=== PATIENT | female | born 1965 | race African-American/Black ===

== ENCOUNTER 2019-02-22 15:12 | Observation (INO) | payer OTHER ==
[2019-02-22 15:21] VITALS: BMI 37.7
--- NOTE | 2019-02-22 15:56 | PDOC ---
History of Present Illness - General Chief Complaint: Chest Pain Stated Complaint: CP Time Seen by Provider: 02/22/19 15:39 - History of Present Illness Initial Comments: 02/22/19 15:55 HPI: 53 y/o F with hx of HTN, DM, RYLAN, obesity presenting with SOB earlier today. She states after lunch around 2pm, she started feeling warm and flushed. After getting up to walk, she reports increased flushing and increasing fatigue and generalized weakness; she then started feeling midsternal chest tightness and SOB. She also reports nausea during this episode but denies emesis. She had to sit down due to her symptoms. She states the episode lasted ~30min. This is a first time occurrence. She also reports exertional dyspnea over the past year and she is not able to walk 1 block without feeling SOB; she denies LH, chest pain, or LE claudication but requires stopping to improve the SOB. She denies fever, chills, ALLEN, abd pain, diahporesis, syncope. She reports an EKG in the past and was told to follow with cardiology; she had an echo and stress test but is unclear of the results from over a year ago. PMHx: as noted above ROS: as noted SHx: Denies tobacco use; no alcohol use; no rec drugs Allergies: NKDA ROS: GENERAL/CONSTITUTIONAL: No fever or chills. +generalized weakness. HEAD, EYES, EARS, NOSE AND THROAT: No change in vision. No ear pain or discharge. No sore throat. CARDIOVASCULAR: No chest pain; +shortness of breath RESPIRATORY: No cough, wheezing, or hemoptysis. GASTROINTESTINAL: +nausea; no vomiting, diarrhea or constipation. GENITOURINARY: No dysuria, frequency, or change in urination. MUSCULOSKELETAL: No joint or muscle swelling or pain. No neck or back pain. SKIN: No rash NEUROLOGIC: No headache, loss of consciousness, or change in strength/sensation. ENDOCRINE: No increased thirst. No abnormal weight change HEMATOLOGIC/LYMPHATIC: No anemia, easy bleeding, or history of blood clots. ALLERGIC/IMMUNOLOGIC: No hives or skin allergy. PE: GENERAL: Awake, alert, and fully oriented, no acute distress HEAD: No signs of trauma, normocephalic, atraumatic EYES: EOMI, sclera anicteric, conjunctiva clear ENT: Auricles normal inspection, hearing grossly normal, nares patent, oropharynx clear without exudates. Moist mucosa NECK: Normal ROM, no lymphadenopathy LUNGS: No increased work of breathing, symmetrical chest rise, clear to auscultation bilaterally, no wheezes, crackles or rhonchi HEART: Regular rate and rhythm, normal S1 and S2, no murmurs, peripheral pulses 2+ and equal bilaterally. ABDOMEN: Soft, nondistended, nontender, normoactive bowel sounds. No guarding, no rebound. No masses. No CVAT MUSCULOSKELETAL: Normal inspection, FROM NEUROLOGICAL: Cranial nerves II through XII grossly intact. Normal speech, normal gait, no focal sensorimotor deficits SKIN: Warm, Dry, normal turgor, no rashes or lesions noted Past History - Past Medical History Allergies/Adverse Reactions: Allergies Allergy/AdvReac Type Severity Reaction Status Date / Time No Known Allergies Allergy Verified 02/22/19 15:19 COPD: No Diabetes: Yes HTN: Yes Hypercholesterolemia: Yes Other medical history: ARTHRITIS - Psycho Social/Smoking Cessation Hx Smoking History: Never smoked Have you smoked in the past 12 months: No Information on smoking cessation initiated: No Hx Alcohol Use: No Drug/Substance Use Hx: No *Physical Exam - Vital Signs Last Vital Signs Temp Pulse Resp BP Pulse Ox 98.3 F 78 18 123/74 99 02/22/19 15:19 02/22/19 15:19 02/22/19 15:19 02/22/19 15:19 02/22/19 15:19 Heart Score/ECG Review - History History: Moderately suspicious - Electrocardiogram EKG: Normal - Age Age: 45-65 - Risk Factors Risk Factors Heart Score: Yes Hx Hypertension, Yes Hx Diabetes, Yes Hx Obesity Based on the list above the patient has:: >/=3 risk factors or Hx atherosclerotic disease - Troponin Troponin: </= normal limit - Score Heart Score - Total: 4 ED Treatment Course - LABORATORY CBC & Chemistry Diagram: 02/22/19 16:30 02/22/19 16:30 Medical Decision Making - Medical Decision Making 02/22/19 18:28 53 y/o F with hx of HTN, DM, RYLAN, obesity presenting with SOB earlier today associated with nonspecific dizziness, chest tightness, nausea. She also reports exertional dyspnea x1 year. VSS, AF. PE unremarkable. DDx includes ACS, vasovagal episode, orthostasis, arrhythmia, lyte imbalance -cbc, cmp, cardiac prof, mg, ekg, cxr 02/22/19 18:39 labs wnl ekg with 1st degree AV block cxr with no acute process 02/22/19 18:43 Given hx and risk factors, concerning story as well as HEART score 4, will admit for obs; pending MBMD 02/22/19 19:56 admit tele obs under Dr Celaya Discharge - Discharge Information Problems reviewed: Yes Clinical Impression/Diagnosis: Chest tightness, Shortness of breath Condition: Fair - Admission Yes - Follow up/Referral Referrals: Carol Castillo MD [Primary Care Provider] - - Patient Discharge Instructions - Post Discharge Activity
[2019-02-22 16:46] LABS: BASO % 1.2 % (0-2.0); EOS % 1.8 % (0-4.5); HEMATOCRIT 37.9 % (32.4-45.2); HEMOGLOBIN 12.2 GM/dL (10.7-15.3); LYMPH % 34.1 % (8-40); MCH 25.8 pg (25.7-33.7); MCHC 32.1 g/dl (32.0-36.0); MEAN CELL VOLUME 80.3 fl (80-96); MEAN PLT VOLUME 9.4 fl (7.5-11.1); MONO % 7.1 % (3.8-10.2); NEUT % 55.8 % (42.8-82.8); PLATELET COUNT 264 K/MM3 (134-434); RBC 4.72 M/mm3 (3.60-5.2); RDW 14.4 % (11.6-15.6); WHITE BLOOD COUNT 7.2 K/mm3 (4.0-10.0)
[2019-02-22 17:08] LABS: MAGNESIUM 1.7 mg/dL (1.8-2.4)
[2019-02-22 17:15] LABS: ALBUMIN 3.9 g/dl (3.4-5.0); BILIRUBIN,TOTAL 0.5 mg/dL (0.2-1); BLOOD UREA NITROGEN 19.1 mg/dL (7-18); CALCIUM 9.3 mg/dL (8.5-10.1); CREATININE 1.3 mg/dL (0.55-1.3); POTASSIUM 3.5 mmol/L (3.5-5.1); TOT PROT 7.8 g/dl (6.4-8.2)
[2019-02-22 17:18] LABS: INR 1.07 (0.83-1.09); PROTHROMBIN TIME (PATIENT) 12.6 SEC (9.7-13.0)
[2019-02-22 17:21] LABS: ACTIVATED PTT 39.7 SECONDS (25.2-36.5)
--- NOTE | 2019-02-22 17:49 | PDOC ---
Documentation entered by Sonja Rios SCRIBE, acting as scribe for Connie Anderson MD. Connie Anderson MD: This documentation has been prepared by the Gabriel degroot Nirvannie, SCRIBE, under my direction and personally reviewed by me in its entirety. I confirm that the documentation accurately reflects all work, treatment, procedures, and medical decision making performed by me. Attending Attestation - Resident Resident Name: RyanLuzdarrion - ED Attending Attestation I have performed the following: I have examined & evaluated the patient, The case was reviewed & discussed with the resident, I agree w/resident's findings & plan, Exceptions are as noted - HPI HPI: 02/22/19 17:30 Ms Dockery is a 53 yo F who present to the ER with an episode of dizziness, chest pain. Patient states she was in her usual state of health, arrived to work at approximately 12 noon. She was going to check in at 1:56 PM when she noted a sense of profound weakness. She entered the elevator and had to hold herself up against the wall of the elevator. When she exited the elevator she put her head down to rest due to weakness Patient then noted she felt very hot. She at some point removed her blouse due to feeling an overwhelming sense of heat. Coworker sat her down and were able to do a fingerstick-130. We attempted to do a blood pressure, but her arm was too big for the blood pressure cuff. Patient states that this point she developed chest tightness/pressure. No radiation to the arm or back. Patient has had 2 symptoms like this in the past. Pt had 45 minutes of symptoms from the moment it began to the beginning of its resolution, patient's reports 02/22/19 17:47 02/22/19 18:26 - Physicial Exam PE: 02/22/19 17:47 GENERAL: The patient is in no acute distress. ENT: Ears normal, nares patent, oropharynx clear without exudates. Moist mucous membranes. NECK: Normal range of motion, supple LUNGS: Breath sounds equal, clear to auscultation bilaterally. No wheezes, and no crackles. HEART:Regular rate and rhythm, normal S1 and S2 without murmur, rub or gallop. ABDOMEN: Soft, nontender, normoactive bowel sounds. EXTREMITIES: Normal range of motion, no edema. NEUROLOGICAL: Cranial nerves II through XII grossly intact. Normal speech. No focal neurological deficits. SKIN: Warm, Dry, normal turgor, no rashes or lesions noted. - Medical Decision Making 02/22/19 17:47 53-year-old female presenting to the emergency department with a complaint of dyspnea on exertion, and impending sense of doom Differential includes cardiac ischemia, pe, asthma exacerbation, pneumonia, pneumothorax, pleural effusion, costochondritis, pericarditis, GERD. We will do: Lab EKG Chest x-ray Admit EKG: My normal sinus rhythm, rate of 75 bpm, axis is normal, intervals are abnormal- [place]: 220ms, QRS 108ms, QTC 466. No ST elevation or depression, T waves are upright 02/22/19 17:48 Laboratory Tests 02/22/19 02/22/19 16:30 16:30 BUN 19.1 H Creatinine 1.3 Creatine Kinase 91 Troponin I < 0.02 02/22/19 18:47 Will plan to admit
[2019-02-22] MEDS ORDERED: ASPIRIN 81 MG CHEWABLE TABLETS PO ONE (18:33)
--- NOTE | 2019-02-22 19:12 | PN ---
Teaching Attending Note Name of Resident: Amrita Serrano ATTENDING PHYSICIAN STATEMENT I saw and evaluated the patient. I reviewed the resident's note and discussed the case with the resident. I agree with the resident's findings and plan as documented. SUBJECTIVE: Patient is a 53 year old woman with a PMH of HTN, NIDDM, Arthritis, Obstructive sleep apnea and Obesity presenting with SOB that started earlier today. She states after lunch around 2 pm, she started feeling warm and flushed. After getting up to walk, she reports increased flushing and increasing fatigue and generalized weakness - then started feeling midsternal chest tightness and SOB. She also reports nausea during this episode but denies vomiting. She had to sit down due to her symptoms. She states the episode lasted about 30 minutes. This is a first time occurrence. She also reports exertional dyspnea over the past year and she is not able to walk 1 block without feeling SOB. Denies lightheadedness or LE claudication, fever, chills, headache, abdominal pain, diaphoresis or dysuria. She reports an EKG in the past and was told to follow with cardiology. She had an echo and stress test over 1 year ago, but is unclear of the results. Denies tobacco, alcohol or illicit drug use. Takes Naproxen for arthritis. Has FH of breast cancer and CVA. OBJECTIVE: Alert Vital Signs Period Temp Pulse Resp BP Sys/Bhat Pulse Ox Last 24 Hr 98.3 F 78 18 123/74 99 HEENT: No Jaundice, eye redness or discharge, PERRLA, EOMI. Normocephalic, atraumatic. External ears are normal and hearing is grossly intact. No nasal discharge. Neck: Supple, nontender. No palpable adenopathy or thyromegaly. No JVD Chest: Good effort. Clear to auscultation and percussion. Heart: Regular. No S3, rub or murmur Abdomen: Not distended, soft, nontender and no HSM. No rebound or guarding. Normal bowel sounds. Ext: Peripheral pulses intact. No leg edema. Skin: Warm and dry. No petechiae, rash or ecchymosis. Neuro: Alert. Oriented x3. CN 2-12 grossly intact. Sensation grossly intact in all four extremities and DTR are symmetric. Psych: Appropriate mood and affect. Good insight. Abnormal Lab Results 1202/22/19 02/22/19 16:30 16:30 16:30 PTT (Actin FS) 39.7 H Anion Gap 6 L BUN 19.1 H Magnesium 1.7 L AST 13 L ASSESSMENT AND PLAN: 1. Chest pain - Now pain free. Got Aspirin 162 mg PO in the ER. Has risk factors for ACS. EKG shows NSR with Io AV block, prolonged QTc, but no significant ST-T wave changes and initial troponin is negative. No acute abnormality on CXR. Will admit to telemetry to rule out ACS, get ECHO, TSH, urinalysis, fasting lipids and consult cardiology. Correct hypomagnesemia with IV MgSO4. Counseled to stop Naproxen or other NSAIDS and use topical agents, warm soaks and/or tylenol for arthritis pain. Will continue comprehensive care for all of patients comorbid conditions. 2. DM For now, we will hold the home diabetes drugs and implement sliding scale insulin regimen. Provide comprehensive diabetes care with patient teaching and counseling about the importance of adherence to prescribed diabetes regimen, euglycemia, eye care and foot care. 3. Obesity Counseled on the risks associated with obesity. Will provide patient all the necessary assistance, counseling and positive reinforcement to facilitate weight loss. Consult stemhole borer. 4. Hypertension - Restart suitable outpatient antihypertensive drugs when clinically appropriate. Revise regimen to ensure [id number] excellent BP control and mental health counselor patient on the injurious effects of uncontrolled hypertension. Nonpharmacologic measures to control hypertension like weight loss , salt restriction and exercise discussed. Importance of adherence to treatment regimen and attainment of normotension emphasized. 5. DVT prophylaxis - Lovenox 40 mg SQ q 24 hours. 6. Advance directives - Full code
[2019-02-22] MEDS ORDERED: ASPIRIN COATED 81 MG TABLET.EC ONE (19:22)
--- NOTE | 2019-02-22 20:14 | HP ---
CHIEF COMPLAINT: chest tightness , SOB PCP: Dr. Francisco HISTORY OF PRESENT ILLNESS: 53 yo F PMH HTN, DM, RYLAN BIBEMS to ED with shortness of breath and chest tightness. Pt states she was at work ( approx 2pm) and suddenly began to feel tired and short of breath. she sat down and became dizzy, vision became dark, mid sternal chest tightness and worsening shortness of breath. she states that they took her glucose and it was 166. after they gave her oxygen, she began feeling better. she states that the chest tightness resolved in the ambulance. she states she has not had a similar incidence in the past. she states that she is compliant with her medications. her hypertension has been uncontrolled for years, although since she joined a program for bariatric weight loss her BP as been improved. she states that for a year she notices worsening orthopnea and dyspnea on exertion. she was recommended to see a mobile heavy equipment operator but hasnt yet. ER course was notable for: (1) EKG reviewed, NSR no ST changes (2)trop neg Recent Travel:denies PAST MEDICAL HISTORY: HTN, DM, RYLAN PAST SURGICAL HISTORY: denies Social History: Smoking:denies Alcohol:denies Drugs: denies Allergies No Known Allergies Allergy (Verified 02/22/19 15:19) HOME MEDICATIONS: will have to obtain med rec metformin 500 HCTZ 25 Lisinopril labetalol amlodipine REVIEW OF SYSTEMS CONSTITUTIONAL: Absent: fever, chills, diaphoresis, generalized weakness, malaise, loss of appetite, weight change HEENT: Absent: rhinorrhea, nasal congestion, throat pain, throat swelling, difficulty swallowing, mouth swelling, ear pain, eye pain, visual changes CARDIOVASCULAR: PresentL chest tightness, lightheaded Absent: chest pain, syncope, palpitations, irregular heart rate, peripheral edema RESPIRATORY: Present: shortness of breath, dyspnea with exertion, orthopnea Absent: cough, wheezing, stridor, hemoptysis GASTROINTESTINAL: Absent: abdominal pain, abdominal distension, nausea, vomiting, diarrhea, constipation, melena, hematochezia GENITOURINARY: Absent: dysuria, frequency, urgency, hesitancy, hematuria, flank pain, genital pain MUSCULOSKELETAL: Absent: myalgia, arthralgia, joint swelling, back pain, neck pain SKIN: Absent: rash, itching, pallor HEMATOLOGIC/IMMUNOLOGIC: Absent: easy bleeding, easy bruising, lymphadenopathy, frequent infections ENDOCRINE: Absent: unexplained weight gain, unexplained weight loss, heat intolerance, cold intolerance NEUROLOGIC: Absent: headache, focal weakness or paresthesias, dizziness, unsteady gait, seizure, mental status changes, bladder or bowel incontinence PSYCHIATRIC: Absent: anxiety, depression, suicidal or homicidal ideation, hallucinations. PHYSICAL EXAMINATION Vital Signs - 24 hr 02/22/19 15:19 Temperature 98.3 F Pulse Rate 78 Respiratory 18 Rate Blood Pressure 123/74 O2 Sat by Pulse 99 Oximetry (%) GENERAL: Awake, alert, and fully oriented, in no acute distress. HEAD: Normal with no signs of trauma. EYES: Pupils equal, round and reactive to light, extraocular movements intact, sclera anicteric, conjunctiva clear. No lid lag. EARS, NOSE, THROAT: Ears normal, nares patent, oropharynx clear without exudates. Moist mucous membranes. + hepatojugular NECK: Normal range of motion, supple without lymphadenopathy, JVD, or masses. LUNGS: Breath sounds equal, clear to auscultation bilaterally. No wheezes, and no crackles. No accessory muscle use. HEART: Regular rate and rhythm, normal S1 and S2 without murmur, rub or gallop. ABDOMEN: Soft, nontender, not distended, normoactive bowel sounds, no guarding, no rebound, no masses. No hepatomegaly or splenomegaly. MUSCULOSKELETAL: Normal range of motion at all joints. No bony deformities or tenderness. No CVA tenderness. UPPER EXTREMITIES: 2+ pulses, warm, well-perfused. No cyanosis. No clubbing. No peripheral edema. LOWER EXTREMITIES: 2+ pulses, warm, well-perfused. No calf tenderness. No peripheral edema. NEUROLOGICAL: Cranial nerves II-XII intact. Normal speech. Normal gait. PSYCHIATRIC: Cooperative. Good eye contact. Appropriate mood and affect. SKIN: Warm, dry, normal turgor, no rashes or lesions noted, normal capillary refill. Laboratory Last Values WBC 7.2 K/mm3 (4.0-10.0) 02/22/19 16:30 RBC 4.72 M/mm3 (3.60-5.2) 02/22/19 16:30 Hgb 12.2 GM/dL (10.7-15.3) 02/22/19 16:30 Hct 37.9 % (32.4-45.2) 02/22/19 16:30 MCV 80.3 fl (80-96) 02/22/19 16:30 MCH 25.8 pg (25.7-33.7) 02/22/19 16:30 MCHC 32.1 g/dl (32.0-36.0) 02/22/19 16:30 RDW 14.4 % (11.6-15.6) 02/22/19 16:30 Plt Count 264 K/MM3 (134-434) 02/22/19 16:30 MPV 9.4 fl (7.5-11.1) 02/22/19 16:30 Absolute Neuts (auto) 4.0 K/mm3 (1.5-8.0) 02/22/19 16:30 Neutrophils % 55.8 % (42.8-82.8) 02/22/19 16:30 Lymphocytes % 34.1 % (8-40) 02/22/19 16:30 Monocytes % 7.1 % (3.8-10.2) 02/22/19 16:30 Eosinophils % 1.8 % (0-4.5) 02/22/19 16:30 Basophils % 1.2 % (0-2.0) 02/22/19 16:30 Nucleated RBC % 0 % (0-0) 02/22/19 16:30 PT with INR 12.60 SEC (9.7-13.0) 02/22/19 16:30 INR 1.07 (0.83-1.09) 02/22/19 16:30 PTT (Actin FS) 39.7 SECONDS (25.2-36.5) H 02/22/19 16:30 Sodium 139 mmol/L (136-145) 02/22/19 16:30 Potassium 3.5 mmol/L (3.5-5.1) 02/22/19 16:30 Chloride 100 mmol/L (98-107) 02/22/19 16:30 Carbon Dioxide 32 mmol/L (21-32) 02/22/19 16:30 Anion Gap 6 MMOL/L (8-16) L 02/22/19 16:30 BUN 19.1 mg/dL (7-18) H 02/22/19 16:30 Creatinine 1.3 mg/dL (0.55-1.3) 02/22/19 16:30 Est GFR (CKD-EPI)AfAm 54.24 02/22/19 16:30 Est GFR (CKD-EPI)NonAf 46.80 02/22/19 16:30 POC Glucometer 91 UNITS (80-120) 02/22/19 22:53 Random Glucose 98 mg/dL (74-106) 02/22/19 16:30 Calcium 9.3 mg/dL (8.5-10.1) 02/22/19 16:30 Magnesium 1.7 mg/dL (1.8-2.4) L 02/22/19 16:30 Total Bilirubin 0.5 mg/dL (0.2-1) 02/22/19 16:30 AST 13 U/L (15-37) L 02/22/19 16:30 ALT 32 U/L (13-61) 02/22/19 16:30 Alkaline Phosphatase 70 U/L (45-117) 02/22/19 16:30 Creatine Kinase 91 U/L (26-192) 02/22/19 16:30 Troponin I < 0.02 ng/ml (0.00-0.05) 02/22/19 16:30 B-Natriuretic Peptide 20.2 pg/ml (5-125) 02/22/19 16:30 Total Protein 7.8 g/dl (6.4-8.2) 02/22/19 16:30 Albumin 3.9 g/dl (3.4-5.0) 02/22/19 16:30 TSH 1.48 uIU/ml (0.358-3.74) 02/22/19 16:30 ASSESSMENT/PLAN: 53 yo F PMH HTN, DM, RYLAN BIBEMS to ED with shortness of breath and chest tightness.admitted to tele obs for r/o ACS Chest pain R/O ACS - s/p Asa pt reports improvement of sxs - EKG reviewed, NSR no ST changes - trop neg x 2 - BNP 20 - pending Echo - fasting lipids - cardiology recs appreciated - TSH 1.48 DM - hold metformin -ISS - BGM ACHS -pending A1C HTN - pt recalls she is on 25 HCTZ, will try to obtain medical reconciliation. continue on 12.5 HCTZ - continue lisinopril, labetalol, amlodipine once med rec obtained - continue to monitor BP MAE vs CKD -unable to obtain baseline but likely chronic - avoid nephrotoxic agents Arthritis - avoid nephrotoxic agents - pt can use Tylenol , bengay for pain F/E/N -1 mg MgSO4 given to replete Mg - monitor lytes - NPO Dispo: tele obs Visit type - Emergency Visit Emergency Visit: Yes ED Registration Date: 02/22/19 Care time: The patient presented to the Emergency Department on the above date and was hospitalized for further evaluation of their emergent condition. - New Patient This patient is new to me today: Yes Date on this admission: 02/23/19 - Critical Care Critical Care patient: No ATTENDING PHYSICIAN STATEMENT I saw and evaluated the patient. I reviewed the resident's note and discussed the case with the resident. I agree with the resident's findings and plan as documented. SUBJECTIVE: OBJECTIVE: ASSESSMENT AND PLAN:
[2019-02-22] MEDS ORDERED: ACETAMINOPHEN 325 MG TABLET (FP) PO PRN (20:43)
[2019-02-22 22:23] LABS: N-TERMINAL BNP 20.2 pg/ml (5-125)
[2019-02-22] MEDS ORDERED: MAGNESIUM SULF 50% (8.12 MEQ/2 ML-1 GM VIAL) IVPB ONE (22:56)
[2019-02-22] MEDS: INSULIN SLIDING SCALE (NOVOLOG) 1 VIAL SQ SCH (23:02)
[2019-02-23] MEDS ORDERED: HEPARIN NA (PORCINE) 5,000 UNITS/ML 1ML VIAL ONE (00:15)
[2019-02-23] MEDS ORDERED: MAGNESIUM 1GM/D5W - 1 GM/100 ML IVPB IVPB ONE (00:15)
[2019-02-23] MEDS ORDERED: HEPARIN NA (PORCINE) 5,000 UNITS/ML 1ML VIAL SQ SCH (02:00)
[2019-02-23 03:27] LABS: URINE APPEARANCE CLEAR; URINE BILIRUBIN NEGATIVE (NEGATIVE); URINE COLOR YELLOW; URINE GLUCOSE (UA) NEGATIVE (NEGATIVE); URINE KETONE NEGATIVE (NEGATIVE); URINE LEUK ESTERASE NEGATIVE (NEGATIVE); URINE NITRITE NEGATIVE (NEGATIVE); URINE PROTEIN NEGATIVE (NEGATIVE); URINE UROBILINOGEN 0.2 mg/dL (0.2-1.0)
[2019-02-23 06:44] LABS: HEMATOCRIT 35.7 % (32.4-45.2); HEMOGLOBIN 11.8 GM/dL (10.7-15.3); MCH 26.1 pg (25.7-33.7); MCHC 33.1 g/dl (32.0-36.0); MEAN CELL VOLUME 79.1 fl (80-96); MEAN PLT VOLUME 9.3 fl (7.5-11.1); PLATELET COUNT 249 K/MM3 (134-434); RBC 4.52 M/mm3 (3.60-5.2); RDW 14.4 % (11.6-15.6); WHITE BLOOD COUNT 6.7 K/mm3 (4.0-10.0)
[2019-02-23 07:08] LABS: ALBUMIN 3.7 g/dl (3.4-5.0); BILIRUBIN,TOTAL 0.6 mg/dL (0.2-1); CALCIUM 9.7 mg/dL (8.5-10.1); CREATININE 1.1 mg/dL (0.55-1.3); MAGNESIUM 2.1 mg/dL (1.8-2.4); PHOSPHOROUS 3.9 mg/dL (2.5-4.9); TOT PROT 7.7 g/dl (6.4-8.2)
[2019-02-23] MEDS: INSULIN SLIDING SCALE (NOVOLOG) 1 VIAL SQ SCH ×3 (07:14→15:40)
[2019-02-23] MEDS: HEPARIN NA (PORCINE) 5,000 UNITS/ML 1ML VIAL SQ SCH ×2 (08:07→14:14)
--- NOTE | 2019-02-23 11:57 | EKG ---
Test Reason : Blood Pressure : / mmHG Vent. Rate : 075 BPM Atrial Rate : 075 BPM P-R Int : 220 ms QRS Dur : 108 ms QT Int : 418 ms P-R-T Axes : 067 010 041 degrees QTc Int : 466 ms SINUS RHYTHM WITH 1ST DEGREE A-V BLOCK NONSPECIFIC T WAVE ABNORMALITY PROLONGED QT ABNORMAL ECG NO PREVIOUS ECGS AVAILABLE Confirmed by NICKOLAS AVILA, YANIRA ([id number]) on 02/23/2019 11:57:40 AM Referred By: Confirmed By:YANIRA OLMOS MD
[2019-02-23] MEDS ORDERED: POTASSIUM CHLORIDE TABS 20 MEQ TABLET.ER (FP) PO SCH (14:41)
--- NOTE | 2019-02-23 15:33 | ECHO ---
Name: SHABBIR FRASER Eugenio Exam:Adult Echocardiogram Study Date: 02/23/2019 02:28 PM Age: 53 yrs Height: 68 in Weight: 248 lb BSA: 2.2 m2 MMode/2D Measurements & Calculations IVSd: 1.1 cm Ao root diam: 2.8 cm LVIDd: 4.0 cm LA dimension: 2.7 cm LVIDs: 2.5 cm ACS: 1.9 cm LVPWd: 1.4 cm EDV(Teich): 69.4 ml LVOT diam: 2.0 cm ESV(Teich): 22.2 ml RV S Francois: 16.2 cm/sec Doppler Measurements & Calculations MV E max francois: 73.5 cm/sec Ao V2 max: 152.0 cm/sec MV A max francois: 98.2 cm/sec Ao max P.2 mmHg MV E/A: 0.75 Ao V2 mean: 109.4 cm/sec MV dec time: 0.31 sec Ao mean P.3 mmHg Ao V2 VTI: 28.5 cm LOI(I,D): 2.8 cm2 LOI(V,D): 2.6 cm2 LV V1 max P.6 mmHg SV(LVOT): 79.3 ml LV V1 mean P.3 mmHg LV V1 max: 128.3 cm/sec LV V1 mean: 83.7 cm/sec LV V1 VTI: 26.2 cm TR max francois: 225.4 cm/sec PA V2 max: 71.6 cm/sec TR max P.3 mmHg PA max P.0 mmHg Med Peak E' Francois: 11.8 cm/sec Med E/e': 6.2 Lat Peak E' Francois: 15.2 cm/sec Lat E/e': 4.8 Procedure A complete two-dimensional transthoracic echocardiogram was performed (2D, M-mode, Doppler and color flow Doppler). Left Ventricle The left ventricular size, thickness and function are normal. The left ventricular ejection fraction is normal. Ejection Fraction = 60-65%. The left ventricular wall motion is normal. Right Ventricle The right ventricle is normal in size and function. Atria Normal left and right atrial size and function. Mitral Valve There is no mitral regurgitation noted. Tricuspid Valve There is trace tricuspid regurgitation. Right ventricular systolic pressure is normal. Aortic Valve No hemodynamically significant valvular aortic stenosis. No aortic regurgitation is present. Pulmonic Valve There is no pulmonic valvular regurgitation. Great Vessels The aortic root is normal size. Pericardium/Pleura There is no pericardial effusion. Interpretation Summary The left ventricular size, thickness and function are normal The right ventricle is normal in size and function. There is trace tricuspid regurgitation. MD Ozzy Roy 02/23/2019 03:32 PM
[2019-02-23] MEDS ORDERED: POTASSIUM CHLORIDE TABS 20 MEQ TABLET.ER (FP) PO ONE ×2 (15:50→16:14)
--- NOTE | 2019-02-23 16:23 | PN ---
Teaching Attending Note Name of Resident: Mikie Moeller ATTENDING PHYSICIAN STATEMENT I saw and evaluated the patient. I reviewed the resident's note and discussed the case with the resident. I agree with the resident's findings and plan as documented. SUBJECTIVE: Patient is a 53 yoF with PMHx of HTN, DM, RYLAN presented to ED with shortness of breath and chest tightness. She denies having any further chest pain or palpitations. OBJECTIVE: Vital Signs Temperature 97.8 F 02/23/19 15:28 Pulse Rate 80 02/23/19 15:28 Respiratory Rate 16 02/23/19 15:28 Blood Pressure 135/72 02/23/19 15:28 O2 Sat by Pulse Oximetry (%) 99 02/23/19 15:29 GENERAL: The patient is awake, alert, and fully oriented, in no acute distress. HEAD: Normal with no signs of trauma. EYES: PERRL, extraocular movements intact, sclera anicteric, conjunctiva clear. ENT: Ears normal, oropharynx clear without exudates, moist mucous membranes. NECK: Trachea midline, full range of motion, supple. LUNGS: Breath sounds equal, clear to auscultation bilaterally, no wheezes, no crackles, no accessory muscle use. HEART: Regular rate and rhythm, S1, S2 without murmur, rub or gallop. ABDOMEN: Soft, nontender, nondistended, normoactive bowel sounds, no guarding, no rebound, no hepatosplenomegaly, no masses. EXTREMITIES: 2+ pulses, warm, well-perfused, no edema. NEUROLOGICAL: Cranial nerves II through XII grossly intact. Normal speech, gait not observed. PSYCH: Normal mood, normal affect. SKIN: Warm, dry, normal turgor, no rashes or lesions noted CBCD WBC 6.7 K/mm3 (4.0-10.0) 02/23/19 05:30 RBC 4.52 M/mm3 (3.60-5.2) 02/23/19 05:30 Hgb 11.8 GM/dL (10.7-15.3) 02/23/19 05:30 Hct 35.7 % (32.4-45.2) 02/23/19 05:30 MCV 79.1 fl (80-96) L 02/23/19 05:30 MCHC 33.1 g/dl (32.0-36.0) 02/23/19 05:30 RDW 14.4 % (11.6-15.6) 02/23/19 05:30 Plt Count 249 K/MM3 (134-434) 02/23/19 05:30 MPV 9.3 fl (7.5-11.1) 02/23/19 05:30 CMP Sodium 141 mmol/L (136-145) 02/23/19 05:30 Potassium 3.0 mmol/L (3.5-5.1) L 02/23/19 05:30 Chloride 100 mmol/L (98-107) 02/23/19 05:30 Carbon Dioxide 30 mmol/L (21-32) 02/23/19 05:30 Anion Gap 10 MMOL/L (8-16) 02/23/19 05:30 BUN 19.0 mg/dL (7-18) H 02/23/19 05:30 Creatinine 1.1 mg/dL (0.55-1.3) 02/23/19 05:30 Random Glucose 115 mg/dL (74-106) H 02/23/19 05:30 Calcium 9.7 mg/dL (8.5-10.1) 02/23/19 05:30 Total Bilirubin 0.6 mg/dL (0.2-1) 02/23/19 05:30 AST 10 U/L (15-37) L 02/23/19 05:30 ALT 26 U/L (13-61) 02/23/19 05:30 Alkaline Phosphatase 69 U/L (45-117) 02/23/19 05:30 Total Protein 7.7 g/dl (6.4-8.2) 02/23/19 05:30 Albumin 3.7 g/dl (3.4-5.0) 02/23/19 05:30 CARDIAC ENZYMES Creatine Kinase 91 U/L (26-192) 02/22/19 16:30 Troponin I < 0.02 ng/ml (0.00-0.05) 02/23/19 00:30 Current Medications Generic Name Dose Route Start Last Admin Trade Name Freq PRN Reason Stop Dose Admin Acetaminophen 650 mg 02/22/19 20:43 Tylenol - PO Q6H PRN PAIN LEVEL 6-10 Heparin Sodium (Porcine) 5,000 unit 02/23/19 08:00 02/23/19 14:14 Heparin - SQ Not Given TID [facility]–1983 Insulin Aspart 0 vial 02/22/19 22:00 02/23/19 15:40 Novolog Vial Sliding Scale - SQ Not Given ACHS [facility], [facility]–1983 Protocol Potassium Chloride 20 meq 02/23/19 14:41 02/23/19 15:40 K-Dur - PO 02/23/19 22:01 20 meq BID [facility]–1983 Administration Home Medications Medication Instructions Recorded Amlodipine Besylate 10 mg PO DAILY 02/23/19 Aspirin [ASA -] 81 mg PO DAILY 02/23/19 Cholecalciferol (Vitamin D3) 5,000 unit PO DAILY 02/23/19 [Vitamin D3] Hydrochlorothiazide 25 mg PO DAILY 02/23/19 Lisinopril [Zestril] 40 mg PO DAILY 02/23/19 metFORMIN HCL [Metformin HCl ER] 500 mg PO DAILY 02/23/19 ASSESSMENT AND PLAN: Patient is a 53 yo F with PMHx HTN, DM, RYLAN presented to ED with shortness of breath and chest tightness. # Acute chest pain R/O ACS , trops are negative, echo is negative, follow with customer success representative as an outpatient for further stress test. follow up with TSH 1.48 NL, echo is normal #DM continue home metformin # HTN continue home meds # MAE vs CKD back to NL. #Arthritis continue home meds follow with primary care doctor and follow up with as an outpatient for a stress test.
--- NOTE | 2019-02-23 16:30 | DS ---
Physical Exam: SUBJECTIVE: Patient seen and examined OBJECTIVE: Vital Signs Period Temp Pulse Resp BP Sys/Bhat Pulse Ox Last 24 Hr 97.8 F-98.6 F 74-80 16-18 126-138/72-81 99-100 PHYSICAL EXAM GENERAL: Awake, alert, and fully oriented, in no acute distress. HEAD: Normal with no signs of trauma. EYES: Pupils equal, round and reactive to light, extraocular movements intact, sclera anicteric, conjunctiva clear. No lid lag. EARS, NOSE, THROAT: Ears normal, nares patent, oropharynx clear without exudates. Moist mucous membranes. + hepatojugular NECK: Normal range of motion, supple without lymphadenopathy, JVD, or masses. LUNGS: Breath sounds equal, clear to auscultation bilaterally. No wheezes, and no crackles. No accessory muscle use. HEART: Regular rate and rhythm, normal S1 and S2 without murmur, rub or gallop. ABDOMEN: Soft, nontender, not distended, normoactive bowel sounds, no guarding, no rebound, no masses. No hepatomegaly or splenomegaly. MUSCULOSKELETAL: Normal range of motion at all joints. No bony deformities or tenderness. No CVA tenderness. UPPER EXTREMITIES: 2+ pulses, warm, well-perfused. No cyanosis. No clubbing. No peripheral edema. LOWER EXTREMITIES: 2+ pulses, warm, well-perfused. No calf tenderness. No peripheral edema. NEUROLOGICAL: Cranial nerves II-XII intact. Normal speech. Normal gait. PSYCHIATRIC: Cooperative. Good eye contact. Appropriate mood and affect. SKIN: Warm, dry, normal turgor, no rashes or lesions noted, normal capillary refill. LABS Laboratory Results - last 24 hr 02/22/19 02/22/19 02/22/19 16:30 16:30 16:30 WBC 7.2 RBC 4.72 Hgb 12.2 Hct 37.9 MCV 80.3 MCH 25.8 MCHC 32.1 RDW 14.4 Plt Count 264 MPV 9.4 Absolute Neuts (auto) 4.0 Neutrophils % 55.8 Lymphocytes % 34.1 Monocytes % 7.1 Eosinophils % 1.8 Basophils % 1.2 Nucleated RBC % 0 PT with INR 12.60 INR 1.07 PTT (Actin FS) 39.7 H Sodium Potassium Chloride Carbon Dioxide Anion Gap BUN Creatinine Est GFR (CKD-EPI)AfAm Est GFR (CKD-EPI)NonAf POC Glucometer Random Glucose Calcium Phosphorus Magnesium Total Bilirubin AST ALT Alkaline Phosphatase Creatine Kinase 91 Troponin I < 0.02 B-Natriuretic Peptide Total Protein Albumin TSH Urine Color Urine Appearance Urine pH Ur Specific [place] Urine Protein Urine Glucose (UA) Urine Ketones Urine Blood Urine Nitrite Urine Bilirubin Urine Urobilinogen Ur Leukocyte Esterase 02/22/19 02/22/19 02/22/19 16:30 16:30 22:53 WBC RBC Hgb Hct MCV MCH MCHC RDW Plt Count MPV Absolute Neuts (auto) Neutrophils % Lymphocytes % Monocytes % Eosinophils % Basophils % Nucleated RBC % PT with INR INR PTT (Actin FS) Sodium 139 Potassium 3.5 Chloride 100 Carbon Dioxide 32 Anion Gap 6 L BUN 19.1 H Creatinine 1.3 Est GFR (CKD-EPI)AfAm 54.24 Est GFR (CKD-EPI)NonAf 46.80 POC Glucometer 91 Random Glucose 98 Calcium 9.3 Phosphorus Magnesium 1.7 L Total Bilirubin 0.5 AST 13 L ALT 32 Alkaline Phosphatase 70 Creatine Kinase Troponin I B-Natriuretic Peptide 20.2 Total Protein 7.8 Albumin 3.9 TSH 1.48 Urine Color Urine Appearance Urine pH Ur Specific [place] Urine Protein Urine Glucose (UA) Urine Ketones Urine Blood Urine Nitrite Urine Bilirubin Urine Urobilinogen Ur Leukocyte Esterase 02/23/19 02/23/19 02/23/19 00:30 03:15 05:30 WBC 6.7 RBC 4.52 Hgb 11.8 Hct 35.7 MCV 79.1 L MCH 26.1 MCHC 33.1 RDW 14.4 Plt Count 249 MPV 9.3 Absolute Neuts (auto) Neutrophils % Lymphocytes % Monocytes % Eosinophils % Basophils % Nucleated RBC % PT with INR INR PTT (Actin FS) Sodium Potassium Chloride Carbon Dioxide Anion Gap BUN Creatinine Est GFR (CKD-EPI)AfAm Est GFR (CKD-EPI)NonAf POC Glucometer Random Glucose Calcium Phosphorus Magnesium Total Bilirubin AST ALT Alkaline Phosphatase Creatine Kinase Troponin I < 0.02 B-Natriuretic Peptide Total Protein Albumin TSH Urine Color Yellow Urine Appearance Clear Urine pH 5.0 Ur Specific [place] 1.019 Urine Protein Negative Urine Glucose (UA) Negative Urine Ketones Negative Urine Blood Negative Urine Nitrite Negative Urine Bilirubin Negative Urine Urobilinogen 0.2 Ur Leukocyte Esterase Negative 02/23/19 02/23/19 02/23/19 05:30 11:07 15:33 WBC RBC Hgb Hct MCV MCH MCHC RDW Plt Count MPV Absolute Neuts (auto) Neutrophils % Lymphocytes % Monocytes % Eosinophils % Basophils % Nucleated RBC % PT with INR INR PTT (Actin FS) Sodium 141 Potassium 3.0 L Chloride 100 Carbon Dioxide 30 Anion Gap 10 BUN 19.0 H Creatinine 1.1 Est GFR (CKD-EPI)AfAm 66.38 Est GFR (CKD-EPI)NonAf 57.27 POC Glucometer 96 104 Random Glucose 115 H Calcium 9.7 Phosphorus 3.9 Magnesium 2.1 Total Bilirubin 0.6 AST 10 L ALT 26 Alkaline Phosphatase 69 Creatine Kinase Troponin I B-Natriuretic Peptide Total Protein 7.7 Albumin 3.7 TSH Urine Color Urine Appearance Urine pH Ur Specific [place] Urine Protein Urine Glucose (UA) Urine Ketones Urine Blood Urine Nitrite Urine Bilirubin Urine Urobilinogen Ur Leukocyte Esterase HOSPITAL COURSE: Date of Admission:02/22/19 Date of Discharge: 02/23/19 53 yo F PMH HTN, DM, RYLAN BIBEMS to ED with shortness of breath and chest tightness. Pt states she was at work ( approx 2pm) and suddenly began to feel tired and short of breath. She sat down and became dizzy, vision became dark, mid sternal chest tightness and worsening shortness of breath. Admitted for ACS r/o. Had neg troponin x2. EKG showed 1st degree heart block. Echo was normal. Patient stable for discharge Minutes to complete discharge: 20 Discharge Summary Problems reviewed: Yes Reason For Visit: SHORTNESS OF BREATH SENSATION OF CHEST TIGHTNESS Current Active Problems Chest tightness (Acute) Shortness of breath (Acute) Condition: Stable - Instructions Diet, Activity, Other Instructions: You were evaluated in the hospital for shortness of breath. You comorbidities were significant enough to prompt overnight observation to rule out cardiac concerns. Your EKG showed a first degree Heart Block that does not need treatment. You underwent an Echocardiogram which was normal. Blood work showed low potassium so you were given potassium tablets. Your symptoms of shortness of breath resolved. Medications: - NO new medications Please follow-up with the physicians below: - Primary Care Physician: to discuss your recent hospitalization, repeat labs as well. - Agriculture Professor(Dr Moreno): for stress test as an outpatient . Please seek immediate medical attention if you experience: - severe chest pain consisting of pressure, crushing, or burning - palpitations - shortness of breath Referrals: Wong Troy MD [Staff Physician] - 1 Week Ruben Moreno MD [Staff Physician] - 1 Week (for follow up for stress test. ) Carol Castillo MD [Primary Care Provider] - Disposition: HOME - Home Medications Comprehensive Discharge Medication List: Ambulatory Orders Amlodipine Besylate 10 mg PO DAILY 02/23/19 Aspirin [ASA -] 81 mg PO DAILY 02/23/19 Cholecalciferol (Vitamin D3) [Vitamin D3] 5,000 unit PO DAILY 02/23/19 Hydrochlorothiazide 25 mg PO DAILY 02/23/19 Lisinopril [Zestril] 40 mg PO DAILY 02/23/19 metFORMIN HCL [Metformin HCl ER] 500 mg PO DAILY 02/23/19 This patient is new to me today: Yes Date on this admission: 02/23/19 Emergency Visit: Yes ED Registration Date: 02/22/19 Care time: The patient presented to the Emergency Department on the above date and was hospitalized for further evaluation of their emergent condition. Critical Care patient: No - Discharge Referral Referred to [facility] Med [facility] No ATTENDING PHYSICIAN STATEMENT I saw and evaluated the patient. I reviewed the resident's note and discussed the case with the resident. I agree with the resident's findings and plan as documented. SUBJECTIVE: OBJECTIVE: ASSESSMENT AND PLAN:
[2019-02-23 20:51] VITALS: BP 152/102; PULSE 89; TEMP 98.4
== END 2019-02-23 20:52 | disposition home or self-care (01) ==
LOC: JER 15:12 → JERBED 19:56 → INTOOBSV 19:56
PROVIDERS: ADMIT Internal Medicine; ATTEND Internal Medicine
PROC: 3E033GC Introduction of Other Therapeutic Substance into Peripheral Vein, Percutaneous Approach (ICD-10-PCS; principal; 2019-02-22)
PROC: 3E013GC Introduction of Other Therapeutic Substance into Subcutaneous Tissue, Percutaneous Approach (ICD-10-PCS; 2019-02-22)
DX: R07.89 Other chest pain (principal); R06.02 Shortness of breath; I10 Essential (primary) hypertension; E78.5 Hyperlipidemia, unspecified; E11.9 Type 2 diabetes mellitus without complications; G47.33 Obstructive sleep apnea (adult) (pediatric); M19.90 Unspecified osteoarthritis, unspecified site; E66.9 Obesity, unspecified; Z68.37 Body mass index [BMI] 37.0-37.9, adult
CPT/HCPCS: 36415; 71046-TC-FY; 80053; 81003; 82550; 82962; 83735; 83880; 84100; 84443; 84484; 85025; 85027; 85610; 85730; 93005; 93010; 93306-TC; 96372; 96374; 99284-25; G0378; J1644